=== PATIENT | female | born 1970 | race Caucasian/White ===

== ENCOUNTER 2024-12-04 08:24 | Emergency (ER) | payer BC, SELFPAY ==
[2024-12-04 08:38] VITALS: BP 158/87
--- NOTE | 2024-12-04 09:41 | ED.GENMED ---
History of Present Illness
General
Chief Complaint: Back Pain
Time Seen by Provider: 12/04/24 09:08
History of Present Illness
History of Present Illness:
53-year-old female with prior history of kidney stones presenting for right sided back pain with radiation to the abdomen. Patient reports symptoms started acutely around 130 this morning, woke her up from sleep. She took 2 Tylenol with minimal
relief. Notes some urinary frequency, denies dysuria or hematuria. Last kidney stone was about 8 to 9 years ago. Reports history of appendectomy. Reports nausea and vomiting from pain. Denies chest pain or difficulty breathing. Denies fever.
Denies additional acute medical complaints.
Phy Exam
Physical Exam
Physical Exam:
General: Well-appearing, no clinical signs of dehydration, nontoxic and in no acute distress
HEENT: protecting airway
Neck: appears supple
CV: Normal heart rate, regular rhythm
Resp: No accessory muscle use, no increased work of breathing
Abd: Soft and non-distended, no tenderness to palpation, no CVA tenderness
Extremities: No deformities, no swelling
Neuro: alert, no focal neurologic deficit
: deferred
Rectal: deferred
Psych: Normal affect
Skin: Intact
Course
Orders/Labs/Results
Orders:
Orders
12/04/24 09:40
CT Abd/pel Without Iv Or Oral Urgent
Comment:
Reason For Exam: R-sided pain, hx stones
0.9% Sodium Chloride 1000 ml [Nss] 1,000 ml IV BOLUS
Ketorolac [Toradol] 15 mg IV NOW STA
12/04/24 09:52
Complete Blood Count/With Diff Urgent
Comprehensive Metabolic Panel Urgent
Urinalysis Reflex To Culture Urgent
Date Specimen was Collected: 12/04/24
Time Specimen was Collected: 09:45
Urine Microscopic Reflex Cult Urgent
12/04/24 11:44
Tamsulosin [Flomax] 0.4 mg PO NOW STA
Abnormal Lab Results
12/04/24
09:52
WBC 13.6 H 10^3/uL
(4.8-10.8)
Hct 36.4 L %
(37.0-47.0)
Absolute Neuts (auto) 10.4 H 10^3/uL
(1.4-6.5)
Neutrophils % 76.8 H %
(42.2-75.2)
Lymphocytes % 17.5 L %
(20.5-51.1)
Sodium 129 L mmol/L
(135-145)
Carbon Dioxide 21 L mmol/L
(22-30)
Creatinine 0.4 L mg/dL
(0.6-1.0)
Glucose 149 H mg/dl
(70-99)
Ur Occult Blood Reflex 4+ A
(Negative)
Urine RBC 30-40 A /HPF
(0-2)
Urine Bacteria (Reflex) Few A
(Negative)
Urine Glucose 2+ A
(Negative)
Urine Albumin (Reflex) 1+ A
(Neg - Trace)
12/04/24 09:52
12/04/24 09:52
Vital Signs
Initial and Last Documented VS:
Initial Vital Signs
Temp Pulse Resp BP Pulse Ox
97.7 F 77 16 158/87 98
12/04/24 08:38 12/04/24 08:38 12/04/24 08:38 12/04/24 08:38 12/04/24 08:38
Last Documented Vital Signs
Temp Pulse Resp BP Pulse Ox
97.7 F 77 16 158/87 98
12/04/24 08:38 12/04/24 08:38 12/04/24 08:38 12/04/24 08:38 12/04/24 08:38
MDM/Problems Addressed
MDM/Problems Addressed:
53-year-old female presenting for acute onset of right-sided back pain with radiation to the abdomen. Vital signs on arrival are significant for mild hypertension.
On exam patient is resting comfortably, no acute distress or discomfort. Patient is afebrile, nontoxic. Symptoms appear consistent with kidney stone. Lower suspicion for infected stone given well appearance. Will plan for laboratory analysis and
CT imaging for further evaluation. Toradol and IV fluids administered for symptoms. Will reassess for improvement.
12:15 -labs show normal renal function. Mild leukocytosis, however afebrile without significant signs of infection in the urine. Again low suspicion for infected stone. CT consistent with right-sided renal stone at [facility] with hydronephrosis. Pain
controlled. Ultimately feel stable for discharge with interval follow-up with urology. Will start patient on Flomax. Strict return precautions communicated to patient verbalized understanding
*Critical Care Note
Total Time (30-74mins, 75-104mins- exclusive of procedures): Not Applicable
ED Attending Note
-
Portions of this chart may have been created with voice recognition software.� Occasional wrong word or��sound alike� substitutions may have occurred due to the inherent limitations of voice recognition software.
Discharge Plan
Departure
Referrals:
Lesa Ashford CRNP [Family Provider, [facility]]
Interventions
Interventions:
*Risk Screen - Suicide Last Done: 12/04/24 08:38
*Neglect/Abuse Screening Last Done: 12/04/24 08:38
Discharge Date and Time
Print Language: SPANISH
[2024-12-04] MEDS: NSS 1000 IV (09:54)
[2024-12-04 09:55] VITALS: BMI 23.2
[2024-12-04] MEDS: TORADOL 15 MG IV (09:55)
[2024-12-04 10:10] LABS: Urine Albumin 1+ (Neg - Trace); Urine Bilirubin Negative (Negative); Urine Character Clear (Clear); Urine Color Yellow; Urine Glucose 2+ (Negative); Urine Ketone Negative (Negative); Urine Leukocyte Negative (Negative); Urine Nitrite Negative (Negative); Urine Occult Blood 4+ (Negative); Urine Urobilinogen Negative (Neg - 1+)
[2024-12-04 10:12] LABS: % Basophils 0.5 % (0-2); % Eosinophils 0.3 % (0-6); % Immature Granulocytes 0.3 % (0-0.5); % Lymphocytes 17.5 % (20.5-51.1); % Monocytes 4.6 % (1.7-9.3); % Neutrophils 76.8 % (42.2-75.2); Absolute Basophils 0.1 10^3/uL (0-0.2); Absolute Lymphocytes 2.4 10^3/uL (1.2-3.4); Absolute Monocytes 0.6 10^3/uL (0.1-0.6); Absolute Neutrophils 10.4 10^3/uL (1.4-6.5); Hematocrit 36.4 % (37.0-47.0); Hemoglobin 12.8 g/dL (12.0-16.0); Mean Corp Hgb Conc. 35.2 g/dL (33.0-37.0); Mean Corpuscular Hgb 30.1 pg (27.0-31.0); Mean Corpuscular Volume 85.6 fL (81.0-99.0); Mean Platelet Volume 10.3 fL (7.4-10.4); Nucleated Red Blood Cells % 0 %; Platelet Count 266 10^3/uL (130-400); Red Blood Cell Count 4.25 10^6/uL (4.20-5.40); Red Cell Dist. Width 13.2 % (11.5-14.5); White Blood Cell Count 13.6 10^3/uL (4.8-10.8)
[2024-12-04 10:15] LABS: ALT (SGPT) 16 U/L (0-35); AST (SGOT) 22 U/L (14-36); Albumin 4.4 g/dl (3.5-5.0); Alkaline Phosphatase 66 U/L (38-126); Blood Urea Nitrogen 12 mg/dl (7-17); Calcium 8.9 mg/dl (8.4-10.2); Carbon Dioxide 21 mmol/L (22-30); Chloride 102 mmol/L (98-107); Estimated Creatinine Clearance 80 ml/min; Glucose 149 mg/dl (70-99); Potassium 4.4 mmol/L (3.5-5.1); Sodium 129 mmol/L (135-145); Total Bilirubin 0.6 mg/dl (0.2-1.3); Total Protein 7.1 g/dl (6.3-8.2); eGFR > 60.00
[2024-12-04 10:52] LABS: Urine Squamous Cell 0-2 /LPF (Few)
[2024-12-04 10:54] LABS: Urine Bacteria Few (Negative); Urine Red Blood Cell 30-40 /HPF (0-2)
[2024-12-04] MEDS: FLOMAX 0.4 MG PO (11:58)
[2024-12-04 12:00] VITALS: BP 138/80
== END 2024-12-04 12:41 | disposition home or self-care (01) ==
LOC: EMR 08:24
PROVIDERS: EMERGENCY PHYSICIAN Student in an Organized Health Care Education/Training Program; FAMILY PHYSICIAN Nurse Practitioner Family
DX: N20.0 Calculus of kidney (principal); Z90.49 Acquired absence of other specified parts of digestive tract
CPT/HCPCS: 96374; 96361; 99284; 74176; 80053; 81003; 81015; 85025